=== PATIENT | female | born 1950 | race American Indian/Alaskan Native ===

== ENCOUNTER 2017-06-21 16:19 | Emergency (ER) | payer OTHER ==
[2017-06-21] MEDS ORDERED: APRESOLINE PO ONE (17:42)
[2017-06-21 18:00] LABS: Bilirubin,Urine NEG (Negative); Blood,Urine SM (Negative); Color,Urine Straw (Yellow); Mucus,Urine FEW /HPF; Nitrite,Urine NEG (Negative); Protein,Urine <15 mg/dL mg/dL (Negative); RBC,Urine < 1.0 /HPF (0.0-6.0); Urobilinogen,Urine < 2.0 mg/dL (<2.0); WBC,Urine < 1.0 /HPF (0.0-6.0)
--- NOTE | 2017-06-21 18:18 | Cat Scan Report ---
FINAL REPORT EXAM: CT HEAD/BRAIN WO CON HISTORY: ? ams, ? dementia TECHNIQUE: CT head without contrast PRIORS: None. FINDINGS: No acute intra-axial or extra-axial hemorrhage is identified. There is no evidence of midline shift or mass effect. There is generalized prominence of ventricles and sulci consistent with mild generalized atrophy. Todd-white matter differentiation is intact. No acute parenchymal abnormalities seen. There are patchy and confluent hypodensities within the supratentorial white matter. There is remote lacunar infarct anterior limb of the right internal capsule. Bony calvarium is grossly intact. Visualized portions of the mastoids and paranasal sinuses are unremarkable. IMPRESSION: Chronic ischemic changes Mild generalized atrophy No acute abnormality identified
--- NOTE | 2017-06-21 18:19 | Emergency Department Report ---
ED Altered Mental Status HPI - General Chief Complaint: Altered Mental Status Stated Complaint: AMS/HBP Time Seen by Provider: 06/21/17 17:13 Source: patient, family, EMS Mode of arrival: Stretcher Limitations: Altered Mental Status - History of Present Illness Initial Comments: 66-year-old female with a history of multiple TIAs, hypertension, hyperlipidemia presents to the hospital with possible unresponsive episode and change in mental status for at least the past 3-4 months. Patient is oriented to self only. She thinks she is at [facility] and thinks the year is 1975 ( patient consistently thinks it is in the ). She apparently lives with her son who patient states is a drug addict. Sister is at the bedside but they do not live together. Apparently the family received a call from the patient's son that she was unresponsive. The family tried to call the home to speak to the patient and her son no one answered the phone and therefore they called 911. Patient was found responsive. No physical complaints reported. Family questions whether or not patient did lose consciousness. Patient's sister states "this is not my sister" meaning that she's been acting abnormal but it has been ongoing for the last 3-4 months and denies any acute changes in her behavior today. Sister does not know if patient has a primary care doctor but has been in and out of the hospital for multiple TIAs and had recent cataract surgery. Denies any known diagnosis of dementia. Sister at bedside confirms that this and indeed has a substance abuse problem and question his account of what happened. - Related Data Home Medications Medication Instructions Recorded Confirmed Last Taken Amlodipine Besylate [Norvasc] 10 mg PO QDAY 06/21/17 06/21/17 Unknown Aspirin [Aspirin BABY CHEW TAB] 81 mg PO QDAY 06/21/17 06/21/17 Unknown AtorvaSTATin [Lipitor] 40 mg PO QHS 06/21/17 06/21/17 Unknown Dextran/Hypromellose/Glycerin 1 - 2 drops OP PRN PRN 06/21/17 06/21/17 Unknown [Genteal Tears 0.1%-0.2%-0.3%] Hydralazine HCl 50 mg PO TID 06/21/17 06/21/17 Unknown Metoprolol Tartrate 50 mg PO BID 06/21/17 06/21/17 Unknown cloNIDine [Catapres] 0.1 mg PO BID 06/21/17 06/21/17 Unknown Allergies Allergy/AdvReac Type Severity Reaction Status Date / Time No Known Allergies Allergy Unverified 06/21/17 17:07 ED Review of Systems ROS: Stated complaint: AMS/HBP Other details as noted in HPI Comment: All other systems reviewed and negative Other: Constitutional: No fevers chills Eyes: No eye pain visual changes ENT: No ear pain or throat pain Neck: Denies pain Respiratory: Denies cough wheezing shortness of breath Cardiovascular: Denies chest pain, palpitations, syncope GI: Denies abdominal pain, nausea, vomiting, diarrhea : Denies dysuria Musculoskeletal: Denies back pain, joint swelling Skin: Denies rash, lesions, erythema Neurologic: Denies headache, numbness, weakness Psychiatric: Denies suicidal ideation, hallucinations ED Past Medical Hx - Past Medical History Hx Hypertension: Yes Hx CVA: Yes (multiple TIAs) Additional medical history: hyperlipidemia - Surgical History Additional Surgical History: L cataract - Social History Smoking Status: Current Every Day Smoker Substance Use Type: None - Medications Home Medications: Home Medications Medication Instructions Recorded Confirmed Last Taken Type Amlodipine Besylate [Norvasc] 10 mg PO QDAY 06/21/17 06/21/17 Unknown History Aspirin [Aspirin BABY CHEW TAB] 81 mg PO QDAY 06/21/17 06/21/17 Unknown History AtorvaSTATin [Lipitor] 40 mg PO QHS 06/21/17 06/21/17 Unknown History Dextran/Hypromellose/Glycerin 1 - 2 drops OP PRN PRN 06/21/17 06/21/17 Unknown History [Genteal Tears 0.1%-0.2%-0.3%] Hydralazine HCl 50 mg PO TID 06/21/17 06/21/17 Unknown History Metoprolol Tartrate 50 mg PO BID 06/21/17 06/21/17 Unknown History cloNIDine [Catapres] 0.1 mg PO BID 06/21/17 06/21/17 Unknown History ED Physical Exam - General Limitations: Altered Mental Status - Other Other exam information: General: No limitations, patient is alert in no acute distress Head exam: Atraumatic, normocephalic Eyes exam: Normal appearance, pupils equal reactive to light, extraocular movements intact ENT: Moist mucous membrane, normal oropharynx Neck exam: Normal inspection, full range of motion, no meningismus nontender Respiratory exam: Clear to auscultation bilateral, no wheezes, rales, crackles Cardiovascular: Normal rate and rhythm, normal heart sounds Abdomen: Soft, nondistended, and nontender, with normal bowel sounds, no rebound, or guarding Extremity: Full range of motion normal inspection no deformity Back: Normal Inspection, full range of motion, no tenderness Neurologic: Alert, oriented x1, cranial nerves intact, no motor or sensory deficit, finger function intact Psychiatric: normal affect, normal mood Skin: Warm, dry, intact ED Course Vital Signs 06/21/17 06/21/17 06/21/17 16:50 16:56 17:00 Temperature 97.8 F Pulse Rate 62 Respiratory 20 Rate Blood Pressure 171/82 171/82 O2 Sat by Pulse 99 100 99 Oximetry 06/21/17 06/21/17 06/21/17 17:16 17:30 17:56 Temperature Pulse Rate 55 L 58 L 55 L Respiratory 21 20 14 Rate Blood Pressure 166/79 171/87 186/85 O2 Sat by Pulse 93 98 98 Oximetry 06/21/17 06/21/17 06/21/17 18:00 18:02 18:22 Temperature Pulse Rate 56 L 60 57 L Respiratory 15 17 Rate Blood Pressure 186/85 184/80 171/87 O2 Sat by Pulse 98 99 Oximetry 06/21/17 06/21/17 06/21/17 18:24 18:31 18:45 Temperature Pulse Rate 55 L 59 L Respiratory 18 15 21 Rate Blood Pressure 195/88 160/97 O2 Sat by Pulse 100 97 97 Oximetry 06/21/17 06/21/17 19:01 19:18 Temperature Pulse Rate 63 76 Respiratory 14 17 Rate Blood Pressure 178/78 186/85 O2 Sat by Pulse 94 100 Oximetry - Reevaluation(s) Reevaluation #1: 06/21/17 19:59 She remained stable and at her baseline during ED stay - Lab Data Result diagrams: 06/21/17 18:09 06/21/17 18:09 Lab Results 06/21/17 06/21/17 06/21/17 Range/Units 17:34 18:09 18:09 WBC 7.6 (4.5-11.0) K/mm3 RBC 4.32 (3.65-5.03) M/mm3 Hgb 12.6 (10.1-14.3) gm/dl Hct 38.7 (30.3-42.9) % MCV 90 (79-97) fl MCH 29 (28-32) pg MCHC 33 (30-34) % RDW 14.4 (13.2-15.2) % Plt Count 272 (140-440) K/mm3 Lymph % (Auto) 20.4 (13.4-35.0) % [place] % (Auto) 7.1 (0.0-7.3) % Eos % (Auto) 3.2 (0.0-4.3) % Baso % (Auto) 1.6 (0.0-1.8) % Lymph # 1.6 (1.2-5.4) K/mm3 [place] # 0.5 (0.0-0.8) K/mm3 Eos # 0.2 (0.0-0.4) K/mm3 Baso # 0.1 (0.0-0.1) K/mm3 Seg Neutrophils % 67.7 (40.0-70.0) % Seg Neutrophils # 5.1 (1.8-7.7) K/mm3 Sodium 142 (137-145) mmol/L Potassium 3.9 (3.6-5.0) mmol/L Chloride 100.9 (98-107) mmol/L Carbon Dioxide 25 (22-30) mmol/L Anion Gap 20 mmol/L BUN 13 (7-17) mg/dL Creatinine 0.9 (0.7-1.2) mg/dL Estimated GFR > 60 ml/min BUN/Creatinine Ratio 14 % Glucose 83 (65-100) mg/dL Calcium 9.2 (8.4-10.2) mg/dL Magnesium 2.10 (1.7-2.3) mg/dL Total Bilirubin 0.30 (0.1-1.2) mg/dL AST 23 (5-40) units/L ALT 17 (7-56) units/L Alkaline Phosphatase 88 (35-129) units/L Total Creatine Kinase (30-135) units/L CK-MB (CK-2) (0.0-4.0) ng/mL CK-MB (CK-2) Rel Index (0-4) Troponin T (0.00-0.029) ng/mL Total Protein 7.5 (6.3-8.2) g/dL Albumin 4.3 (3.9-5) g/dL Albumin/Globulin Ratio 1.3 % TSH (0.270-4.200) mlU/mL Free T4 (0.76-1.46) ng/dL Urine Color Straw (Yellow) Urine Turbidity Clear (Clear) Urine pH 5.0 (5.0-7.0) Ur Specific Hydro 1.004 (1.003-1.030) Urine Protein <15 mg/dl (Negative) mg/dL Urine Glucose (UA) Neg (Negative) mg/dL Urine Ketones Neg (Negative) mg/dL Urine Blood Sm (Negative) Urine Nitrite Neg (Negative) Urine Bilirubin Neg (Negative) Urine Urobilinogen < 2.0 (<2.0) mg/dL Ur Leukocyte Esterase Neg (Negative) Urine WBC (Auto) < 1.0 (0.0-6.0) /HPF Urine RBC (Auto) < 1.0 (0.0-6.0) /HPF Urine Mucus Few /HPF 06/21/17 06/21/17 Range/Units 18:09 18:09 WBC (4.5-11.0) K/mm3 RBC (3.65-5.03) M/mm3 Hgb (10.1-14.3) gm/dl Hct (30.3-42.9) % MCV (79-97) fl MCH (28-32) pg MCHC (30-34) % RDW (13.2-15.2) % Plt Count (140-440) K/mm3 Lymph % (Auto) (13.4-35.0) % [place] % (Auto) (0.0-7.3) % Eos % (Auto) (0.0-4.3) % Baso % (Auto) (0.0-1.8) % Lymph # (1.2-5.4) K/mm3 [place] # (0.0-0.8) K/mm3 Eos # (0.0-0.4) K/mm3 Baso # (0.0-0.1) K/mm3 Seg Neutrophils % (40.0-70.0) % Seg Neutrophils # (1.8-7.7) K/mm3 Sodium (137-145) mmol/L Potassium (3.6-5.0) mmol/L Chloride (98-107) mmol/L Carbon Dioxide (22-30) mmol/L Anion Gap mmol/L BUN (7-17) mg/dL Creatinine (0.7-1.2) mg/dL Estimated GFR ml/min BUN/Creatinine Ratio % Glucose (65-100) mg/dL Calcium (8.4-10.2) mg/dL Magnesium (1.7-2.3) mg/dL Total Bilirubin (0.1-1.2) mg/dL AST (5-40) units/L ALT (7-56) units/L Alkaline Phosphatase (35-129) units/L Total Creatine Kinase 76 (30-135) units/L CK-MB (CK-2) 2.6 (0.0-4.0) ng/mL CK-MB (CK-2) Rel Index 3.4 (0-4) Troponin T < 0.010 (0.00-0.029) ng/mL Total Protein (6.3-8.2) g/dL Albumin (3.9-5) g/dL Albumin/Globulin Ratio % TSH 0.726 (0.270-4.200) mlU/mL Free T4 1.25 (0.76-1.46) ng/dL Urine Color (Yellow) Urine Turbidity (Clear) Urine pH (5.0-7.0) Ur Specific Hydro (1.003-1.030) Urine Protein (Negative) mg/dL Urine Glucose (UA) (Negative) mg/dL Urine Ketones (Negative) mg/dL Urine Blood (Negative) Urine Nitrite (Negative) Urine Bilirubin (Negative) Urine Urobilinogen (<2.0) mg/dL Ur Leukocyte Esterase (Negative) Urine WBC (Auto) (0.0-6.0) /HPF Urine RBC (Auto) (0.0-6.0) /HPF Urine Mucus /HPF - EKG Data -: EKG Interpreted by Me (lvh) EKG shows normal: sinus rhythm, axis (-27), QRS complexes (100), ST-T waves (no stemi/t inv) Rate: bradycardia (57) When compared to previous EKG there are: previous EKG unavailable - Radiology Data Radiology results: report reviewed Read by radiologist CT head: Chronic ischemic changes. Mild generalized atrophy. No acute findings - Medical Decision Making Possible unresponsive episode Unsure if this really have any given signs history of substance abuse Patient is at her baseline as per sister at the bedside Patient likely has dementia and requires further outpatient workup and evaluation No acute findings on labs, urine, or CT Sister feels comfortable taking patient home and will monitor her Outpatient follow-up encouraged - Differential Diagnosis dementia, delerium, cva, tia, syncope, seizure Critical Care Time: No Critical care attestation.: If time is entered above; I have spent that time in minutes in the direct care of this critically ill patient, excluding procedure time. ED Disposition Clinical Impression: Memory deficit, HTN (hypertension) Disposition: TO HOME OR SELFCARE Is pt being admited?: No Does the pt Need Aspirin: No Condition: Stable Instructions: Dementia (ED), Hypertension (ED) Additional Instructions: Follow-up either with your primary care doctor or the doctor provided. You need further investigation of the ongoing memory problems and workup for possible dementia. Please return is symptoms worsen. Continue your current medication as prescribed. Referrals: SILVINA WILLIAMSON MD [Staff Physician] - 3-5 Days (primary care doctor ) DOT HARPER MD [Primary Care Provider] - 3-5 Days Time of Disposition: 20:01
[2017-06-21 18:27] LABS: Basophils # (Auto) 0.1 K/mm3 (0.0-0.1); Basophils % (Auto) 1.6 % (0.0-1.8); Eosinophils # (Auto) 0.2 K/mm3 (0.0-0.4); Eosinophils % (Auto) 3.2 % (0.0-4.3); Hematocrit 38.7 % (30.3-42.9); Hemoglobin 12.6 gm/dl (10.1-14.3); Lymphocytes # (Auto) 1.6 K/mm3 (1.2-5.4); Lymphocytes % (Auto) 20.4 % (13.4-35.0); Mean Corpuscular HGB Conc 33 % (30-34); Mean Corpuscular Hemoglobin 29 pg (28-32); Mean Corpuscular Volume 90 fl (79-97); Monocytes # (Auto) 0.5 K/mm3 (0.0-0.8); Monocytes % (Auto) 7.1 % (0.0-7.3); Platelet Count 272 K/mm3 (140-440); Red Blood Count 4.32 M/mm3 (3.65-5.03); Red Cell Distribution Width 14.4 % (13.2-15.2)
[2017-06-21 18:53] LABS: Alanine Aminotransferase 17 units/L (7-56); Albumin 4.3 g/dL (3.9-5); BUN/Creatinine Ratio 14; Blood Urea Nitrogen 13 mg/dL (7-17); Calcium 9.2 mg/dL (8.4-10.2); Hemolysis Index 1
[2017-06-21 18:55] LABS: Creatine Kinase MB 2.6 ng/mL (0.0-4.0)
[2017-06-21 18:57] LABS: Free T4 (Free Thyroxine) 1.25 ng/dL (0.76-1.46)
[2017-06-21 20:02] VITALS: BP 176/82
--- NOTE | 2017-06-21 20:36 | XRay Report ---
FINAL REPORT EXAM: XR CHEST 1V AP HISTORY: syncope TECHNIQUE: upright single view chest PRIORS: None. FINDINGS: Cardiac and mediastinal contours are unremarkable. No focal pulmonary infiltrate is identified. No pleural fluid collection seen. Pulmonary vasculature is unremarkable. IMPRESSION: Negative single-view chest
== END 2017-06-21 20:40 | disposition home or self-care (01) ==
LOC: ED 16:19
DX: I69.911 Memory deficit following unspecified cerebrovascular disease (principal); I10 Essential (primary) hypertension; E78.5 Hyperlipidemia, unspecified; F17.200 Nicotine dependence, unspecified, uncomplicated; Z98.42 Cataract extraction status, left eye
CPT/HCPCS: 36415; 70450; 71045; 80053; 81001; 82550; 82553; 83735; 84439; 84443; 84484; 85025; 93005; 93010

== ENCOUNTER 2017-10-22 08:21 | Outpatient (CLI) | payer OTHER ==
[2017-10-22] MEDS ORDERED: XYLOCAINE TOPICAL 4% TP ONE ×2 (09:12→10:41)
== END 2017-10-22 08:22 | disposition home or self-care (01) ==
LOC: WOUND 08:21
PROVIDERS: ATTEND Surgery
DX: L97.511 Non-pressure chronic ulcer of other part of right foot limited to breakdown of skin (principal); L97.311 Non-pressure chronic ulcer of right ankle limited to breakdown of skin; I87.2 Venous insufficiency (chronic) (peripheral); I10 Essential (primary) hypertension; M19.90 Unspecified osteoarthritis, unspecified site; L60.2 Onychogryphosis; F17.200 Nicotine dependence, unspecified, uncomplicated; Z98.49 Cataract extraction status, unspecified eye
CPT/HCPCS: 11042; 11043; 11045; 11046; G0463

== ENCOUNTER 2017-10-29 10:26 | Outpatient (CLI) | payer OTHER ==
[2017-10-29] MEDS ORDERED: XYLOCAINE TOPICAL 4% TP ONE ×2 (10:53→11:13)
== END 2017-10-29 10:27 | disposition home or self-care (01) ==
LOC: WOUND 10:26
PROVIDERS: ATTEND Surgery
DX: L97.511 Non-pressure chronic ulcer of other part of right foot limited to breakdown of skin (principal); L97.311 Non-pressure chronic ulcer of right ankle limited to breakdown of skin; I87.2 Venous insufficiency (chronic) (peripheral); M19.90 Unspecified osteoarthritis, unspecified site; I10 Essential (primary) hypertension; F17.200 Nicotine dependence, unspecified, uncomplicated; Z98.49 Cataract extraction status, unspecified eye

== ENCOUNTER 2017-11-05 10:10 | Outpatient (CLI) | payer OTHER ==
[2017-11-05] MEDS ORDERED: XYLOCAINE TOPICAL 4% TP ONE ×2 (10:41→10:49)
[2017-11-05] MEDS ORDERED: AD OINTMENT TP PRN (10:50)
== END 2017-11-05 10:11 | disposition home or self-care (01) ==
LOC: WOUND 10:10
PROVIDERS: ATTEND Surgery
DX: L97.311 Non-pressure chronic ulcer of right ankle limited to breakdown of skin (principal); I87.2 Venous insufficiency (chronic) (peripheral); I10 Essential (primary) hypertension; M19.90 Unspecified osteoarthritis, unspecified site; F17.200 Nicotine dependence, unspecified, uncomplicated; Z98.49 Cataract extraction status, unspecified eye
CPT/HCPCS: A6250

== ENCOUNTER 2017-11-12 10:24 | Outpatient (CLI) | payer OTHER ==
[2017-11-12] MEDS ORDERED: XYLOCAINE TOPICAL 4% TP ONE ×2 (11:55→13:00)
== END 2017-11-12 10:25 | disposition home or self-care (01) ==
LOC: WOUND 10:24
PROVIDERS: ATTEND Surgery
DX: L97.311 Non-pressure chronic ulcer of right ankle limited to breakdown of skin (principal); I87.2 Venous insufficiency (chronic) (peripheral); I10 Essential (primary) hypertension; M19.90 Unspecified osteoarthritis, unspecified site; F17.200 Nicotine dependence, unspecified, uncomplicated; Z98.49 Cataract extraction status, unspecified eye

== ENCOUNTER 2017-11-26 10:06 | Outpatient (CLI) | payer OTHER ==
[2017-11-26] MEDS ORDERED: XYLOCAINE TOPICAL 4% TP ONE ×2 (10:12→11:14)
== END 2017-11-26 10:07 | disposition home or self-care (01) ==
LOC: WOUND 10:06
PROVIDERS: ATTEND Surgery
DX: L97.311 Non-pressure chronic ulcer of right ankle limited to breakdown of skin (principal); I87.2 Venous insufficiency (chronic) (peripheral); I10 Essential (primary) hypertension; M19.90 Unspecified osteoarthritis, unspecified site; F17.200 Nicotine dependence, unspecified, uncomplicated; Z98.49 Cataract extraction status, unspecified eye

== ENCOUNTER 2017-12-03 10:12 | Outpatient (CLI) | payer MEDICARE, OTHER ==
[2017-12-03] MEDS ORDERED: XYLOCAINE TOPICAL 4% TP ONE ×2 (10:15→12:00)
[2017-12-03] MEDS ORDERED: NACL 0.9% 500 ML IR ONE (10:16)
[2017-12-03] MEDS ORDERED: NACL 0.9% IR PRN (15:59)
== END 2017-12-03 10:13 | disposition home or self-care (01) ==
LOC: WOUND 10:12
PROVIDERS: ATTEND Surgery
DX: I70.233 Atherosclerosis of native arteries of right leg with ulceration of ankle (principal); L97.311 Non-pressure chronic ulcer of right ankle limited to breakdown of skin; I87.2 Venous insufficiency (chronic) (peripheral); I10 Essential (primary) hypertension; M19.90 Unspecified osteoarthritis, unspecified site; F17.200 Nicotine dependence, unspecified, uncomplicated; Z98.49 Cataract extraction status, unspecified eye

== ENCOUNTER 2017-12-09 10:33 | Outpatient (CLI) | payer MEDICARE ==
[2017-12-09 11:39] LABS: Blood Urea Nitrogen 12 mg/dL (7-17)
--- NOTE | 2017-12-09 17:31 | Cat Scan Report ---
FINAL REPORT PROCEDURE: CT ANGIO ABD/FEMORAL ABD AORTA TECHNIQUE: Computerized axial tomographic angiography of the aortoiliac system with bilateral lower extremity runoff was performed after the IV injection of nonionic iodinated contrast including image processing. The image data was postprocessed using 2-dimensional multiplanar reformatted (MPR) and 3-dimensional (MIP and/or volume rendered) techniques. HISTORY: CHRONIC VENOUS HYPERTENSION COMPARISON: No prior studies are available for comparison. FINDINGS: Abdominal aorta: There is atherosclerotic calcification. No dissection or significant dilatation Celiac artery: There is atherosclerotic calcification at the origin, with approximately 50 percent stenosis Superior mesenteric artery: There is mild atherosclerotic calcification of the proximal artery, with approximately 40 percent stenosis. There is mild atherosclerotic calcification and plaque of the mid portion of the vessel LEFT renal artery: Normal. RIGHT renal artery: There is mild atherosclerotic calcification of the proximal right renal artery, with approximately 50 percent stenosis Inferior mesenteric artery: Small caliber inferior mesenteric artery is present Common iliac arteries: Bilateral ectasia with atherosclerotic calcification External iliac arteries: Bilaterally patent, without significant stenosis RIGHT lower extremity: Femoral arteries: Atherosclerotic calcification of the common femoral artery and superficial femoral artery, without focal stenosis Popliteal artery: There is diffuse atherosclerotic calcification. There is a focal stenosis of the mid popliteal artery, with approximately 70 percent stenosis Trifurcation vessels: The anterior tibial artery is occluded throughout much of its course, with no definite contrast seen within the dorsalis pedis artery. The peroneal and dorsalis pedis arteries also not well-visualized and may be diffusely diminutive in caliber or occluded. Numerous collateral vessels are seen throughout the right calf LEFT lower extremity: Femoral arteries: There is atherosclerotic calcification of the common femoral artery and superficial femoral artery, however which are patent Popliteal artery: Diffuse atherosclerotic calcification, with approximately 50 percent stenosis of the midportion Trifurcation vessels: The anterior tibial artery and posterior tibial artery appear occluded throughout their course. There is a diminutive peroneal artery noted, which appears patent to the level of the ankle. Abdominal and pelvic viscera: Mild bilateral adrenal hyperplasia. No acute inflammatory process is identified Other: None. IMPRESSION: Bilateral lower extremity arterial insufficiency, particularly involving the runoff vessels
== END 2017-12-09 10:34 | disposition home or self-care (01) ==
LOC: CT 10:33
PROVIDERS: ATTEND Surgery Vascular Surgery
DX: I87.323 Chronic venous hypertension (idiopathic) with inflammation of bilateral lower extremity (principal); I87.311 Chronic venous hypertension (idiopathic) with ulcer of right lower extremity; I70.213 Atherosclerosis of native arteries of extremities with intermittent claudication, bilateral legs; I70.0 Atherosclerosis of aorta; F17.210 Nicotine dependence, cigarettes, uncomplicated
CPT/HCPCS: 36415; 75635; 82565; 84520; Q9967

== ENCOUNTER 2017-12-10 10:05 | Outpatient (CLI) | payer MEDICARE ==
[2017-12-10] MEDS ORDERED: XYLOCAINE TOPICAL 4% TP ONE ×2 (11:01→11:28)
[2017-12-10] MEDS ORDERED: NACL 0.9% 500 ML IR ONE (11:01)
[2017-12-10] MEDS ORDERED: NACL 0.9% IR ONE (13:49)
== END 2017-12-10 10:06 | disposition home or self-care (01) ==
LOC: WOUND 10:05
PROVIDERS: ATTEND Surgery
DX: I70.233 Atherosclerosis of native arteries of right leg with ulceration of ankle (principal); L97.312 Non-pressure chronic ulcer of right ankle with fat layer exposed; M19.90 Unspecified osteoarthritis, unspecified site; I10 Essential (primary) hypertension; F17.200 Nicotine dependence, unspecified, uncomplicated; Z98.49 Cataract extraction status, unspecified eye

== ENCOUNTER 2017-12-17 10:54 | Outpatient (CLI) | payer MEDICARE ==
[2017-12-17] MEDS ORDERED: XYLOCAINE TOPICAL 4% TP ONE ×2 (11:26)
== END 2017-12-17 10:55 | disposition home or self-care (01) ==
LOC: WOUND 10:54
PROVIDERS: ATTEND Surgery
DX: I70.233 Atherosclerosis of native arteries of right leg with ulceration of ankle (principal); L97.312 Non-pressure chronic ulcer of right ankle with fat layer exposed; M19.90 Unspecified osteoarthritis, unspecified site; I10 Essential (primary) hypertension; F17.200 Nicotine dependence, unspecified, uncomplicated; Z98.49 Cataract extraction status, unspecified eye

== ENCOUNTER 2017-12-23 13:24 | Outpatient (CLI) | payer OTHER, MEDICARE ==
--- NOTE | 2017-12-24 08:01 | Mammography Report ---
Bilateral mammogram: No previous studies available. CAD study utilized. Findings: Predominance of the adipose tissue bilaterally. Focal 5 mm asymmetric density lower inner right breast with a 3 mm density in the adjacent region. No microcalcification. Benign calcifications bilaterally. Normal axilla. Impression: Asymmetric densities lower inner right breast. Recommend spot compression and if necessary sonographic examination. BI-RADS CATEGORY: 0 = Needs additional imaging evaluation ACR BI-RADS MAMMOGRAPHIC CODES: 0 = Needs additional imaging evaluation; 1 = Negative; 2 = Benign; 3 = Probably benign; 4 = Suspicious; 5 = Malignant; 6 = Known biopsy-proven malignancy COMMENT: 1. Dense breast tissue, i.e., adenosis, fibrocystic changes, etc., may obscure an underlying neoplasm. 2. Approximately 10% of cancers are not detected with mammography. 3. A negative mammography report should not delay biopsy if a clinically suspicious mass is present. COMMENT: Patient follow-up letters are generated in [employer].
== END 2017-12-23 13:25 | disposition home or self-care (01) ==
LOC: MAMMO 13:24
PROVIDERS: ATTEND Internal Medicine
DX: Z12.31 Encounter for screening mammogram for malignant neoplasm of breast (principal); I10 Essential (primary) hypertension; F17.210 Nicotine dependence, cigarettes, uncomplicated
CPT/HCPCS: 77067

== ENCOUNTER 2017-12-24 10:09 | Outpatient (CLI) | payer OTHER, MEDICARE ==
[2017-12-24] MEDS ORDERED: XYLOCAINE TOPICAL 4% TP ONE ×2 (10:54→11:38)
[2017-12-24] MEDS ORDERED: AD OINTMENT TP ONE (10:55)
[2017-12-24] MEDS ORDERED: AD OINTMENT TP PRN ×2 (11:38→12:18)
[2017-12-24] MEDS ORDERED: SILVER NITRATE TP ONE ×2 (11:44→12:17)
== END 2017-12-24 10:10 | disposition home or self-care (01) ==
LOC: WOUND 10:09
PROVIDERS: ATTEND Surgery
DX: I70.233 Atherosclerosis of native arteries of right leg with ulceration of ankle (principal); L97.312 Non-pressure chronic ulcer of right ankle with fat layer exposed; M19.90 Unspecified osteoarthritis, unspecified site; I10 Essential (primary) hypertension; F17.200 Nicotine dependence, unspecified, uncomplicated; Z98.49 Cataract extraction status, unspecified eye
CPT/HCPCS: A6250

== ENCOUNTER 2017-12-31 10:04 | Outpatient (CLI) | payer OTHER, MEDICARE ==
[2017-12-31] MEDS ORDERED: XYLOCAINE TOPICAL 4% TP ONE ×2 (10:19→12:00)
[2017-12-31] MEDS ORDERED: AD OINTMENT TP ONE (10:20)
[2017-12-31] MEDS ORDERED: AD OINTMENT TP PRN (11:40)
== END 2017-12-31 10:05 | disposition home or self-care (01) ==
LOC: WOUND 10:04
PROVIDERS: ATTEND Surgery
DX: I70.233 Atherosclerosis of native arteries of right leg with ulceration of ankle (principal); L97.312 Non-pressure chronic ulcer of right ankle with fat layer exposed; M19.90 Unspecified osteoarthritis, unspecified site; I10 Essential (primary) hypertension; F17.200 Nicotine dependence, unspecified, uncomplicated; Z98.49 Cataract extraction status, unspecified eye
CPT/HCPCS: A6250

== ENCOUNTER 2018-01-07 08:52 | Day surgery (SDC) | payer MEDICARE ==
[~2018-01-07 08:52] MED LIST: ANCEF/STERILE WATER 2 GM/20 ML 2 GM/20 ML SYRINGE IV NR; NACL 0.9% 1000 ML 1,000 ML IV SCH
[2018-01-07 09:39] LABS: Basophils # (Auto) 0.1 K/mm3 (0.0-0.1); Basophils % (Auto) 0.5 % (0.0-1.8); Eosinophils # (Auto) 0.1 K/mm3 (0.0-0.4); Hematocrit 30.2 % (30.3-42.9); Hemoglobin 9.6 gm/dl (10.1-14.3); Lymphocytes # (Auto) 1.6 K/mm3 (1.2-5.4); Lymphocytes % (Auto) 12.3 % (13.4-35.0); Mean Corpuscular HGB Conc 32 % (30-34); Mean Corpuscular Hemoglobin 26 pg (28-32); Mean Corpuscular Volume 81 fl (79-97); Monocytes # (Auto) 1.1 K/mm3 (0.0-0.8); Monocytes % (Auto) 8.6 % (0.0-7.3); Platelet Count 376 K/mm3 (140-440); Red Blood Count 3.73 M/mm3 (3.65-5.03); Red Cell Distribution Width 17.2 % (13.2-15.2)
[2018-01-07 09:52] LABS: INR 0.91 (0.87-1.13); Partial Thromboplastin Time 33.5 Sec. (24.2-36.6)
[2018-01-07 09:54] LABS: BUN/Creatinine Ratio 10; Blood Urea Nitrogen 10 mg/dL (7-17); Calcium 9.1 mg/dL (8.4-10.2); Hemolysis Index 16
[2018-01-07] MEDS ORDERED: HEPARIN/NS 5000 UNIT/500ML(CATH LAB) 1,000 ML IR ONE (10:28)
[2018-01-07] MEDS ORDERED: HEPARIN 10,000 UNITS/10 ML ONE (10:28)
[2018-01-07] MEDS ORDERED: ANCEF/STERILE WATER 2 GM/20 ML 2 GM/20 ML SYRINGE IV ONE (10:29)
[2018-01-07] MEDS ORDERED: XYLOCAINE 1%/ EPI 1:100,000 INFILTRATI ONE (10:29)
[2018-01-07] MEDS ORDERED: NACL 0.9% 500 ML 500 ML ONE (10:53)
[2018-01-07] MEDS ORDERED: DILAUDID ONE (10:59)
[2018-01-07] MEDS: VERSED ONE ×3 (11:17→12:20)
[2018-01-07] MEDS: SUBLIMAZE ONE ×2 (11:41→12:19)
--- NOTE | 2018-01-07 13:12 | Operative Report ---
Operative Report Operative Report: Operative note: Date: 01/07/2018 Preoperative diagnosis: Nonhealing ulcer of right lower extremity Postoperative diagnosis: Same. Operation: Right lower extremity angiogram with angioplasty of TP trunk and peroneal artery, ultrasound-guided access of left common femoral artery. Deployment of 6 Fr.angioseal for access site. Surgeon: Kiarra Eastman. Asst.: None Anesthesia: Moderate sedation EBL: Minimal Findings: Right lower extremity angiogram showed patent iliac arteries, right common femoral, SFA and profunda patent, popliteal artery patent, occlusion of TP trunk and all tibials with her constitution of peroneal artery proximally, collateralization to TP. Indications: 67 female underwent bilateral callus resection by podiatry. She healed her wound on the left leg but have never healed those on the right. Get the pain she is using Jim mostly has minimal walking. She underwent CT angiogram that showed tibial occlusions who is popliteal disease on the right side. Patient was discussed risks, benefits and alternatives of performing angiogram. She agreed and signed informed consent. Operative details: Patient was brought to the [facility] and placed in supine position. Her groins were prepped and draped in sterile fashion. Timeout was performed and all team members in agreement. Left common femoral artery was accessed under continuous ultrasound guidance with micropuncture kit needle. Local anesthetic was injected. Wire was inserted and exchanged the micropuncture sheath. Bentson wire was advanced into the distal aorta under fluoroscopy. Micropuncture sheath was exchanged to 5 [place]i access sheath and flushed. Omni Flush catheter was inserted to the distal aorta and angiogram was performed. Next, Bentson wire was advanced to contralateral side and Omni Flush was positioned in the common femoral artery and arteriogram was runoff was performed of the right lower extremity. The findings were as above. Serum was made to attempt to cross the occlusion of peroneal artery and get in-line flow for wound healing. At that point patient was heparinized with 5000 units of heparin. Bentson wire was advanced through SFA distally and Omni Flush catheter was removed. A 6 x 90 cm destination sheath was inserted and positioned in popliteal artery. Moderate cross catheter was then advanced over wire and positioned in popliteal artery distally. Bentson wire was exchanged to V18 wire. The lesion was crossed and wire was advanced all the way to distal peroneal artery followed by 90 across. Then slow injection was made to confirm intraluminal placement. She was again positioned in the distal peroneal, not across catheter was removed and I used 2 mm Branch balloon and performed angioplasty of peroneal artery throughout its length. Next I used 3 mm balloon and angioplasty proximal portion of peroneal was to be too trunk. Angiogram showed decent improvement with excellent collateralization and good blood supply of all vascular beds including the ankle and foot. Next I used 4 mm In Pact DCB and performed balloon was replaced of proximal peroneal artery was to be too trunk holding stimulus was under inflation. There, I also performed angioplasty of residual length of peroneal artery was 3 mm balloon. Post- interventional angiogram through the sheath showed excellent result. The wire was removed and Bentson wire was inserted, destination sheath was slowly removed with the wire to access site. Angiogram was performed confirming [place] II common femoral artery. I used 6 [place]mani Angio-Seal. Patient tolerated procedure well.
--- NOTE | 2018-01-07 13:20 | Short Stay Summary ---
Short Stay Documentation Date of service: 01/07/18 - History H&P: obtained from office Past Medical History: other (venous insufficency) Past Surgical History: Other (bilateral callus removal) - Allergies and Medications Current Medications: Allergies No Known Allergies Allergy (Verified 01/07/18 09:33) Home Medications Medication Instructions Recorded Confirmed Last Taken Type Amlodipine Besylate [Norvasc] 10 mg PO QDAY 06/21/17 01/07/18 01/07/18 History 10mg Aspirin [Aspirin BABY CHEW TAB] 81 mg PO QDAY 06/21/17 01/07/18 01/07/18 History 81mg AtorvaSTATin [Lipitor] 40 mg PO QHS 06/21/17 01/07/18 01/06/18 History 40mg Hydralazine HCl 50 mg PO TID 06/21/17 01/07/18 01/07/18 History 50mg Metoprolol Tartrate 50 mg PO BID 06/21/17 01/07/18 01/07/18 History 50mg cloNIDine [Catapres] 0.1 mg PO QHS 06/21/17 01/07/18 01/06/18 History Active Medications Cefazolin Sodium (Ancef/Sterile Water 2 Gm/20 Ml) 2 gm in 20 mls @ 80 mls/hr IV PREOP NR; Protocol Stop: 01/07/18 23:01 Sodium Chloride (Nacl 0.9% 1000 Ml) 1,000 mls @ 42 mls/hr IV DIRECT SHILPI - Brief post op/procedure progress note Date of procedure: 01/07/18 Pre-op diagnosis: nonhealing right Le ulcer Post-op diagnosis: same Procedure: right Le angiogram with CHILD THERAPIST of peroneal artery and TP trunk Anesthesia: other (moderate sedation) Findings: occluded TP trunk and peroneal right Surgeon: MARILOU SOUTH Estimated blood loss: minimal Pathology: none - Disposition Condition at discharge: Good Disposition: DC-01 TO HOME OR SELFCARE Short Stay Discharge Plan Activity: advance as tolerated Diet: regular Follow up with: KVNG SALAZAR MD [Primary Care Provider] - 7 Days MARILOU SOUTH DO [Staff Physician] - 14 Days Prescriptions: Acetaminophen/Codeine [Tylenol /Codeine # 3 tab] 1 tab PO Q6H PRN #20 tab PRN Reason: Pain, Moderate (4-6)
[2018-01-07] MEDS ORDERED: PLAVIX PO ONE (13:24)
[2018-01-07 15:58] VITALS: BP 160/74
== END 2018-01-07 15:45 | disposition home or self-care (01) ==
LOC: CATHLABREC 08:52
PROVIDERS: ATTEND Surgery Vascular Surgery
DX: I70.238 Atherosclerosis of native arteries of right leg with ulceration of other part of lower leg (principal); L97.819 Non-pressure chronic ulcer of other part of right lower leg with unspecified severity; I10 Essential (primary) hypertension; E78.00 Pure hypercholesterolemia, unspecified; M19.90 Unspecified osteoarthritis, unspecified site; F17.200 Nicotine dependence, unspecified, uncomplicated; Z79.82 Long term (current) use of aspirin; Z79.899 Other long term (current) drug therapy; Z79.01 Long term (current) use of anticoagulants; Z98.890 Other specified postprocedural states
CPT/HCPCS: 36415; 37228; 75710; 80048; 85025; 85610; 85730; 99156; 99157; C1725; C1760; C1769; C1887; C2623; J0690; J1170; J1644; J2250; J3010; J7040; 76937; J7030; Q9967

== ENCOUNTER 2018-01-14 10:03 | Outpatient (CLI) | payer MEDICARE ==
[2018-01-14] MEDS ORDERED: XYLOCAINE TOPICAL 4% TP ONE ×2 (10:18→12:03)
[2018-01-14] MEDS ORDERED: SILVER NITRATE TP ONE ×2 (11:25→12:03)
== END 2018-01-14 10:04 | disposition home or self-care (01) ==
LOC: WOUND 10:03
PROVIDERS: ATTEND Surgery
DX: I70.233 Atherosclerosis of native arteries of right leg with ulceration of ankle (principal); L97.312 Non-pressure chronic ulcer of right ankle with fat layer exposed; M19.90 Unspecified osteoarthritis, unspecified site; I10 Essential (primary) hypertension; F17.200 Nicotine dependence, unspecified, uncomplicated; Z98.49 Cataract extraction status, unspecified eye

== ENCOUNTER 2018-01-25 10:19 | Outpatient (CLI) | payer MEDICARE ==
--- NOTE | 2018-01-25 11:05 | Mammography Report ---
RIGHT DIGITAL DIAGNOSTIC MAMMOGRAM : 01/25/18 10:19:00 CLINICAL: Recalled for asymmetry. COMPARISON:12/23/17 screening FINDINGS: Additional mammographic views were performed and are negative. IMPRESSION: Negative Mammogram. BI-RADS CATEGORY: 1 -- Negative RECOMMENDATION: Routine mammographic screening in one year. ACR BI-RADS MAMMOGRAPHIC CODES: 0 = Needs additional imaging evaluation; 1 = Negative; 2 = Benign; 3 = Probably benign; 4 = Suspicious; 5 = Malignant; 6 = Known biopsy-proven malignancy COMMENT: 1. Dense breast tissue, i.e., adenosis, fibrocystic changes, etc., may obscure an underlying neoplasm. 2. Approximately 10% of cancers are not detected with mammography. 3. A negative mammography report should not delay biopsy if a clinically suspicious mass is present. COMMENT: Patient follow-up letters are generated via our [employer] application.
== END 2018-01-25 10:20 | disposition home or self-care (01) ==
LOC: MAMMO 10:19
PROVIDERS: ATTEND Internal Medicine
DX: R92.8 Other abnormal and inconclusive findings on diagnostic imaging of breast (principal); E78.00 Pure hypercholesterolemia, unspecified; I10 Essential (primary) hypertension; Z87.891 Personal history of nicotine dependence